=== PATIENT | female | born 1985 | race Caucasian/White ===

== ENCOUNTER → 2020-01-12 | Outpatient (CLI) | payer OTHER ==
[~2020-01-12] MED LIST: CYCL10TA2 PO; FAMO20TA5 PO; ONDA4TAB7 PO; OXYC-325 PO
== END | disposition home or self-care (01) ==
LOC: LAB 15:08
PROVIDERS: ATTEND Surgery
DX: Z20.828 Contact with and (suspected) exposure to other viral communicable diseases (principal)
CPT/HCPCS: U0003-CS

== ENCOUNTER 2020-01-17 06:11 | Day surgery (SDC) | payer OTHER ==
[~2020-01-17] VITALS: Ht 170.2 cm; Wt 71.0 kg
[~2020-01-17 06:11] MED LIST changes: -ONDA4TAB7 PO; -OXYC-325 PO; +ceFAZolin SODIUM IV Push 1 GM VIAL. IVP PRN
[2020-01-17] MEDS ORDERED: SCOPOLAMINE 1.5MG PATCH. TD ONE (06:45)
[2020-01-17] MEDS ORDERED: PROCHLORPERAZINE 10 MG/2 ML VIAL. IV PRN (07:00)
[2020-01-17] MEDS ORDERED: IV RINGERS,LACTATED 1000ML 1,000 ML IV SCH (07:00)
[2020-01-17] MEDS ORDERED: fentaNYL PF VIAL 100 MCG/2 ML VIAL IV PRN (07:00)
[2020-01-17] MEDS ORDERED: LIDOCAINE 1% PF 2 ML VIAL. ID PRN (07:00)
[2020-01-17] MEDS ORDERED: ONDANSETRON PF 4 MG/2 ML VIAL. IV PRN (07:00)
[2020-01-17] MEDS ORDERED: ROCURONIUM 50 MG/5 ML VIAL. ONE (07:23)
[2020-01-17] MEDS ORDERED: fentaNYL PF VIAL 100 MCG/2 ML VIAL ONE ×2 (07:23→09:50)
[2020-01-17] MEDS ORDERED: MIDAZOLAM HCL/PF 2 MG/2 ML VIAL. ONE (07:24)
[2020-01-17] MEDS ORDERED: DEXAMETHASONE SOD PHOS 4 MG/ML VIAL ONE ×2 (07:24)
[2020-01-17] MEDS ORDERED: PROPOFOL 10 MG/ML (20ML) VIAL. IV ONE ×2 (07:24→08:46)
[2020-01-17] MEDS ORDERED: FAMOTIDINE 20 MG/2 ML VIAL ONE (07:24)
[2020-01-17] MEDS ORDERED: DESFLURANE 61 TO 120 MINUTES IH ONE (07:24)
[2020-01-17] MEDS ORDERED: LIDOCAINE 2% PF 5 ML VIAL. ONE (07:24)
[2020-01-17] MEDS ORDERED: KETOROLAC 30 MG/ML VIAL. ONE (07:25)
[2020-01-17] MEDS ORDERED: ONDANSETRON PF 4 MG/2 ML VIAL. ONE (07:25)
[2020-01-17] MEDS ORDERED: GLYCOPYRROLATE 1 MG/5 ML VIAL. ONE (08:11)
[2020-01-17] MEDS ORDERED: NEOSTIGMINE METHYLSULFATE 5 MG/5 ML SYRINGE. ONE (08:11)
[2020-01-17] MEDS ORDERED: HYDROmorphone 2 MG/ML VIAL ONE ×2 (08:25→10:02)
[2020-01-17] MEDS ORDERED: SCOPOLAMINE 1.5MG PATCH. TD SCH (09:00)
--- NOTE | 2020-01-17 09:41 | PDOC4 ---
Operative Note Operative Note Operative Note: Preoperative Diagnosis: Ventral hernia Postoperative Diagnosis: Same Procedure: Ventral hernia repair with mesh Surgeon: Francois Crime Scene Examiner: Keke GOFF Anesthesia: General EBL: 20 mL Specimen: None Drains: None Complications: None Indication: The patient is a 34-year-old female who was referred due to a ventral hernia. She was offered surgical repair. The risks of surgery were discussed which include bleeding, infection, recurrence, pain, anesthetic risk, mesh reaction, visceral injury, potential need for additional surgery procedure. She understands and would like to proceed. Description: The patient was taken to the operating room and placed supine on the operating table. General anesthesia was performed. The abdomen was prepped with ChloraPrep and draped with sterile towels, sheets, and an Ioban. A vertical incision was made inferior to the umbilicus extending adjacent to it. Cautery dissection was carried down to the fascia and the hernia defect was readily identified. There was significant scar tissue reaction from prior abdominal surgeries. The fascial edges of the hernia defect were delineated. A retro-muscular plane was then developed circumferentially with several centimeters of overlap in all directions. This took considerable time due to the significant amount of scarring from prior surgeries. A Ventrio ST circular mesh was then placed into this retro-muscular plane. The mesh was sutured into position around its periphery with 0 Prolene stitches placed in a horizontal mattress fashion. The anterior fascia was then closed over the mesh with interrupted 0 Prolene. The subcutaneous tissue was approximated with 3-0 Vicryl and the skin was closed with 4-0 Monocryl. Steri-Strips and a sterile dressing were applied. The patient tolerated the procedure well and was sent to the recovery room in stable condition. At the end of the case all counts were correct. DOE JHA MD Jan 17, 2020 09:41
--- NOTE | 2020-01-17 09:44 | DISCH ---
DISCHARGE INSTRUCTIONS Condition on Discharge Condition on Discharge: Stable Activity After Discharge Activity Instructions for Disc: Other, see below (no lifting over 20 lbs, strenuous activity X 6 weeks) Driving Instructions after Dis: Other, see below (no driving while taking pain meds) Diet after Discharge Diet after Discharge: Regular Wound Incision Care Wound/Incision Care: Other, see below (keep dressing clean and dry X 72 hours, may then remove and shower) Follow-Up Follow up with: Dr Jha in office in 2 weeks, call for appointment [phone] DOE JHA MD Jan 17, 2020 09:44
[2020-01-17] MEDS ORDERED: oxyCODONE/APAP 5/325 1 TAB TABLET PO ONE ×2 (09:45)
[2020-01-17] MEDS: fentaNYL PF VIAL 100 MCG/2 ML VIAL IV PRN ×2 (09:54→09:58)
[2020-01-17] MEDS: HYDROmorphone 2 MG/ML VIAL IV PRN ×4 (10:05→10:26)
[2020-01-17] MEDS ORDERED: ONDA4TAB7 PO (10:09)
[2020-01-17] MEDS ORDERED: OXYC-325 PO (10:10)
[2020-01-17 10:45] VITALS: BP 123/72
== END 2020-01-17 11:15 | disposition home or self-care (01) ==
LOC: SURG 06:11
PROVIDERS: ATTEND Surgery
PROC: 0WUF07Z Supplement Abdominal Wall with Autologous Tissue Substitute, Open Approach (ICD-10-PCS; principal; 2020-01-17 07:30)
DX: K43.9 Ventral hernia without obstruction or gangrene (principal); Z88.2 Allergy status to sulfonamides; Z88.8 Allergy status to other drugs, medicaments and biological substances; Z79.899 Other long term (current) drug therapy
CPT/HCPCS: 49560; 49568; 81025; A7015; C1713; C1781; J0690; J0780; J1100; J1170; J1885; J2250; J2405; J2704; J2710; J3010; J3490; J7120

== ENCOUNTER → 2020-01-19 | Outpatient (CLI) | payer OTHER ==
[2020-01-17 10:45] VITALS: BP 123/72
[~2020-01-19] MED LIST changes: +ONDA4TAB7 PO; +OXYC-325 PO; -ceFAZolin SODIUM IV Push 1 GM VIAL. IVP PRN
[2020-01-19 15:45] LABS: BILIRUBIN,URINE NEGATIVE (NEG); CLARITY,URINE CLEAR; COLOR,URINE YELLOW; NITRITE,URINE NEGATIVE (NEG); PROTEIN,URINE NEGATIVE (NEG-TRACE); UROBILINOGEN,URINE 0.2 mg/dL (0.2 mg/dL)
[2020-01-19 15:51] LABS: BACTERIA,URINE FEW /HPF (0-FEW); SQUAMOUS EPITHELIAL CELL,UR MANY /LPF
== END | disposition home or self-care (01) ==
LOC: LAB 15:11
PROVIDERS: ATTEND Nurse Practitioner Family
DX: R30.0 Dysuria (principal)
CPT/HCPCS: 81001; 87086